=== PATIENT | male | born 1995 | race Two or more races ===

== ENCOUNTER 2017-12-10 17:31 | Emergency (ER) | payer OTHER, BC ==
[2017-12-10 18:21] LABS: ABSOLUTE EOSINOPHILS # (AUTO) 0.2 10^3/uL (0.0-0.6); ABSOLUTE LYMPHOCYTES (AUTO) 1.9 10^3/uL (0.5-4.7); ABSOLUTE MONOCYTES (AUTO) 1.2 10^3/uL (0.1-1.4); ABSOLUTE NEUT (AUTO) 7.2 10^3/uL (1.7-8.2); BASOPHILS % (AUTO) 0.4 % (0-2); EOSINOPHILS % (AUTO) 1.6 % (0-6); HEMATOCRIT 42.6 % (37.9-51.0); HEMOGLOBIN 14.5 g/dL (13.5-17.0); MEAN CORPUSCULAR HEMOGLOBIN 29.5 pg (27.0-33.4); MEAN CORPUSCULAR HGB CONC 34.1 g/dL (32.0-36.0); MEAN CORPUSCULAR VOLUME 86 fl (80-97); MONOCYTES % (AUTO) 11.4 % (3-13); PLATELET COUNT 305 10^3/uL (150-450); RED BLOOD COUNT 4.93 10^6/uL (4.35-5.55); RED CELL DISTRIBUTION WIDTH 13.1 % (11.5-14.0); SEGMENTED NEUTROPHILS % (AUTO) 68.6 % (42-78); TOTAL CELLS COUNTED % (AUTO) 100 %; WHITE BLOOD COUNT 10.4 10^3/uL (4.0-10.5)
[2017-12-10 18:22] LABS: ALANINE AMINOTRANSFERASE 84 U/L (21-72); ALBUMIN 4.5 g/dL (3.5-5.0); ALKALINE PHOSPHATASE 71 U/L (38-126); ANION GAP 10 (5-19); ASPARTATE AMINO TRANSFERASE 39 U/L (17-59); BILIRUBIN,DIRECT 0.4 mg/dL (0.0-0.4); BILIRUBIN,TOTAL 0.6 mg/dL (0.2-1.3); BLOOD UREA NITROGEN 17 mg/dL (7-20); CALCIUM 10.1 mg/dL (8.4-10.2); CARBON DIOXIDE 26 mmol/L (22-30); CHLORIDE 106 mmol/L (98-107); GLUCOSE 89 mg/dL (75-110); LIPASE 54.3 U/L (23-300); SODIUM 142.1 mmol/L (137-145); TOTAL PROTEIN 7.5 g/dL (6.3-8.2)
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
[2017-12-10 19:46] VITALS: BP 124/65
--- NOTE | 2017-12-11 07:48 | EKG REPORT ---
SEVERITY:- OTHERWISE NORMAL ECG - SINUS TACHYCARDIA : Confirmed by: Barry Montaño MD 11-Dec-2017 07:46:44
== END 2017-12-10 19:46 | disposition home or self-care (01) ==
LOC: ER 17:31
DX: T14.8XXA Other injury of unspecified body region, initial encounter (principal); R10.30 Lower abdominal pain, unspecified; R41.3 Other amnesia; V48.5XXA Car driver injured in noncollision transport accident in traffic accident, initial encounter; R62.50 Unspecified lack of expected normal physiological development in childhood
CPT/HCPCS: 36415; 70450; 74176; 80053; 83690; 85025; 93005; 93010; 99285